=== PATIENT | female | born 1935 | race Caucasian/White ===

== ENCOUNTER 2018-06-13 12:14 | Inpatient (IN) | payer OTHER, MEDICARE ==
[~2018-06-13] VITALS: Ht 165.1 cm; Wt 61.2 kg
[~2018-06-13 12:14] MED LIST: ASPIR 8181 MG PO; AZITHROMYCIN250 MG PO; FISH OIL CONCEN1 SGL PO; GABAPENTIN300 MG PO; JANUMET 1000 MG1 TAB PO; LISINOPRIL40 MG PO; MAGNESIUM OXID400 MG PO; MULTIVITAMIN1 TAB PO; NORVASC 5MG TAB5 MG PO; PANTOPRAZOLE SO40 MG PO; PREDNISONE10 MG PO; QUETIAPINE FUM100 MG PO; QUETIAPINE FUMA25 MG PO; QUININE SULFAT324 MG PO; SIMVASTATIN20 MG PO; TRAZODONE100 MG PO; VITAB121000 PO; VITAMIN C250 M1 PO; VITAMIN C500 M1 PO
[2018-06-13 13:08] LABS: ABSOLUTE BASOPHIL COUNT 0 /CUMM (0.0-0.2); ABSOLUTE EOSINOPHIL COUNT 0.1 /CUMM (0.0-0.7); ABSOLUTE GRANULOCYTE CT 2.8 /CUMM (1.4-6.5); ABSOLUTE LYMPH COUNT 0.9 /CUMM (1.2-3.4); ABSOLUTE MONOCYTE COUNT 0.3 /CUMM (0.10-0.60); BASOPHIL % 0.4 % (0.0-2.0); EOSINOPHIL % 3.5 % (0-5); GRANULOCYTE % 67.4 % (42.2-75.2); HEMATOCRIT 32.6 % (37-47); MEAN CORPUSCULAR HGB 30.5 PG (27.0-31.0); MEAN CORPUSCULAR HGB CONC 33.9 G/DL (33.0-37.0); MEAN CORPUSCULAR VOLUME 89.9 FL (81.0-99.0); MEAN PLATELET VOLUME 6.8 FL (7.4-10.4); PLATELET COUNT 223 /CUMM (130-400); RBC DISTRIBUTION WIDTH 14.2 % (11.5-14.5); RED BLOOD CELL CT 3.62 /CUMM (4.20-5.40); WHITE BLOOD CELL COUNT 4.2 /CUMM (4.8-10.8)
--- NOTE | 2018-06-13 14:06 | RADIOLOGY REPORT ---
EXAMINATION: XR CHEST CLINICAL INFORMATION: Chest tightness and cough COMPARISON: 01/09/2016 TECHNIQUE: 2 views of the chest were obtained. FINDINGS: Focal opacity of the posterior lungs, also projects over the vertebral bodies appreciated on the lateral view only. This is new when compared with the prior chest radiograph. No pneumothorax or pleural effusion bilaterally. The lungs are hyperinflated with flattening of the diaphragms as previously seen. Heart size is normal. Atherosclerosis thoracic aorta. Degenerative changes of the spine. IMPRESSION: Focal opacity seen on the lateral view only also projecting over a lower thoracic vertebral body. Whether this is artifact from summation of shadows or a focal opacity is unable to be determined. If indicated based upon clinical assessment, chest CT can be performed. COPD.
[2018-06-13] MEDS ORDERED: JANUMET 50-1,01 EACH PO (16:47)
[2018-06-13] MEDS ORDERED: LISINOPRIL40 M1 PO (16:47)
[2018-06-13] MEDS ORDERED: QUETIAPINE FUMA25 M1 PO (16:49)
[2018-06-13] MEDS ORDERED: QUININE SULFAT324 M1 PO (16:49)
[2018-06-13] MEDS ORDERED: GABAPENTIN300 M2 PO (16:49)
[2018-06-13] MEDS ORDERED: MULTIVITAMINS1 EAC9 PO (16:50)
[2018-06-13] MEDS ORDERED: TRAZODONE HCL100 M1 PO (16:50)
[2018-06-13] MEDS ORDERED: QUETIAPINE FUM100 M1 PO (16:50)
[2018-06-13] MEDS ORDERED: VITAMIN B-121000 MC3 PO (16:51)
[2018-06-13] MEDS ORDERED: FISH OIL 1,0001 EAC1 PO (16:51)
[2018-06-13] MEDS ORDERED: ASPIRIN EC81 M1 PO (16:51)
[2018-06-13] MEDS ORDERED: VITAMIN C500 M8 PO (16:52)
[2018-06-13] MEDS ORDERED: VITAMIN D1000 UNIT PO (16:53)
[2018-06-13] MEDS ORDERED: IRON240 MG PO (16:53)
[2018-06-13] MEDS ORDERED: ZINC50 M2 PO (16:53)
[2018-06-13] MEDS ORDERED: MAGNESIUM400 M1 PO (16:54)
--- NOTE | 2018-06-13 17:36 | ED INFLUENZA/URI COMPLAINT ---
History of Present Illness General Chief Complaint: Dyspnea (COPD, CHF, Other) Stated Complaint: SOB; EAR PAIN; SORE THROAT Source: patient Exam Limitations: no limitations Vital Signs & Intake/Output Vital Signs & Intake/Output Vital Signs Date Time Temp Pulse Resp B/P B/P Pulse O2 O2 Flow FiO2 Mean Ox Delivery Rate 06/15 0907 100 148/66 06/15 0906 100 148/66 06/15 0630 98.6 78 18 148/60 99 06/15 0000 Room Air 06/14 2233 90 154/90 ED Intake and Output 06/15 0000 06/14 1200 Intake Total 480 220 Output Total 660 Balance -180 220 Intake, Oral 480 220 Number 0 Bowel Movements Output, Urine 660 Patient 133 lb Weight Weight Bed scale Measurement Method Allergies Coded Allergies: NO KNOWN ALLERGIES (10/24/14) Reconcile Medications Amlodipine Besylate 5 MG TABLET 1 TAB PO DAILY HTN .. Ascorbic Acid (Vitamin C) (Unknown Strength) TABLET (Unknown Dose) PO QW SUPPLEMENT (Reported) Aspirin (Ecotrin*) 81 MG TABLET.DR 1 TAB PO DAILY HEART/BLOOD (Reported) Cholecalciferol (Vitamin D3) (Vitamin D) 1,000 UNIT TABLET 1 TAB PO DAILY SUPPLEMENT (Reported) Cyanocobalamin (Vitamin B-12) (Unknown Strength) TABLET (Unknown Dose) PO DAILY SUPPLEMENT (Reported) Ferrous Gluconate (IRON) 240 MG (27 MG IRON) TABLET 1 TAB PO DAILY SUPPLEMENT (Reported) Gabapentin 300 MG CAPSULE 1 CAP PO QHS RLS (Reported) Lisinopril 40 MG TABLET 1 TAB PO DAILY BP (Reported) Magnesium Oxide (Magnesium) (Unknown Strength) CAPSULE (Unknown Dose) PO DAILY SUPPLEMENT (Reported) Multiple Vitamin (Multivitamins) 1 EACH TABLET 2 TAB PO QW SUPPLEMENT ( Reported) [place]-3 Fatty Acids/Fish Oil (Fish Oil 1,000 MG Softgel) (Unknown Strength) CAPSULE (Unknown Dose) PO DAILY SUPPLEMENT (Reported) Quetiapine Fumarate 25 MG TABLET 2 TAB PO QHS INSOMNIA (Reported) Quetiapine Fumarate 100 MG TABLET 1 TAB PO QHS INSOMNIA (Reported) Quinine Sulfate 324 MG CAPSULE 1 CAP PO DAILY UNKNOWN (Reported) Sitagliptin Phos/Metformin HCl (Janumet 50-1,000 MG Tablet) 50 MG-1,000 MG TABLET 1 TAB PO BID DM (Reported) Trazodone HCl 100 MG TABLET 1 TAB PO QHS INSOMNIA (Reported) ZINC 50 MG TABLET 1 TAB PO DAILY SUPPLEMENT (Reported) Triage Note: PT TO ED C/O FEELING SOB WHILE SITTING OUTSIDE WITH FRIENDS. PT CURRENTLY ON Z-PACK FOR BRONCHITIS. C/O SORE THROAT AND RIGHT EAR PAIN. AFEBRILE. NO SOB NOTED. Triage Nurses Notes Reviewed? yes HPI: Patient is a 82 year old female with history of recurrent bronchitis, HTN, and DM2 who presents with complaints of shortness of breath, sore throat, chest heaviness, headache, and right ear pain for 4 days. According to patient she has recurrent bronchitis which generally presents this way and took a z-pack she had in her house. She is currently on day 4 and reports no relief of symptoms. She denies any cough, fever, chills, dizziness, or palpitations. She denies any recent surgery, lower limb pain/swelling, or history of DVT or PE Past History Travel History Traveled to [place] past 21 day No Medical History Any Pertinent Medical History? 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 No Review of Systems Review of Systems Constitutional: Reports: no symptoms. EENTM: Reports: ear pain, throat pain. Respiratory: Reports: no symptoms. Cardiovascular: Reports: no symptoms. GI: Reports: no symptoms. Genitourinary: Reports: no symptoms. Musculoskeletal: Reports: no symptoms. Skin: Reports: no symptoms. Neurological/Psychological: Reports: headache. Hematologic/Endocrine: Reports: no symptoms. Immunologic/Allergic: Reports: no symptoms. All Other Systems: Reviewed and Negative Physical Exam Physical Exam General Appearance: well developed/nourished, no apparent distress, alert, awake , comfortable Head: atraumatic, normal appearance Eyes: Bilateral: normal appearance, PERRL, EOMI. Ears, Nose, Throat: moist mucous membrane, hearing grossly normal, Tympanic normal, mild pharyngeal erythema Neck: normal inspection, supple, full range of motion Respiratory: normal breath sounds, chest non-tender Cardiovascular: regular rate/rhythm, edema, murmur (1+ PERIPHERIAL EDEMA), 1+ PERIPHERIAL EDEMA Peripheral Pulses: 2+ radial (L), 2+ ulnar (L) Gastrointestinal: normal bowel sounds, soft, non-tender, no organomegaly Back: normal inspection Neurologic/Psych: awake, alert, oriented x 3 Lymphatic: no anterior cervical rosette Core Measures Sepsis Present: No Sepsis Focused Exam Completed? No Progress Differential Diagnosis: cardiac vs pulmonary shortness of breath etiology. Plan of Care: Orders Procedure Date/time Status Discharge Patient 06/15 UNK Active Laboratory Tests 06/15/18 0630: Anion Gap 10, Estimated GFR 39 L, BUN/Creatinine Ratio 11.5 06/14/18 1730: Ur Random Creatinine 26.3, Ur Random Sodium 86, Ur Random Potassium 17.7, Fraction Sodium Excret 3.2 H Initial ED EKG: HR 89, NH 228, QTC 439 Sinus Rhythm, normal rate, normal axis First Degree AV block with PVC's. Negative for ST deviation or T wave inversion. Appropriate R wave progression. NO stemi. First degree AV block noted on previous EKG. Repeat EKG: changed (Neg st segment deviation) Comments: HEART score of 4. 1900 Ms Ena starts having an episode of shortness of breath and chest heaviness. ECG and trop re-ordered. Departure Departure Disposition: STILL A PATIENT Condition: Stable Clinical Impression Primary Impression: Anginal equivalent Secondary Impressions: Chest tightness, Hypertensive urgency Referrals: Chan Horn MD (PCP/Family) Departure Forms: Customer Survey General Discharge Information Prescriptions: Current Visit Scripts Amlodipine Besylate 1 TAB PO DAILY #30 TAB ..
--- NOTE | 2018-06-13 20:26 | History & Physical ---
Randy Gonzalez 06/13/182025: General Information and HPI MD Statement: I have seen and personally examined ANA LAURA TIRADO and documented this H&P. The patient is a 82 year old F who presented with a patient stated chief complaint of [chest pressure, shortness of breath, ear pain]. Source of Information: patient Exam Limitations: no limitations History of Present Illness: The patient is an 82-year-old lady with a past medical history significant for recurrent bronchitis, hypertension, diabetes mellitus, peripheral neuropathy, restless leg syndrome, GERD, osteoarthritis, and insomnia who presented to ED with chief complaint of chest pressure, shortness of breath, ear pain, and sore throat. She states that she is pretty active and does all the household activity by herself including grocery shopping. She was feeling fine until 4 days ago when she is started having an earache and sore throat. She was prescribed a backup Z -Jose per Dr. Horn due to recurrent bronchitis episodes; she started using it, and now she is on day 4 but she believes it has not helped her. She mentions that she was feeling relatively fine until 11 AM when she suddenly started having headache and mild chest pressure. She was also feeling feverish. When she was admitted to ED she had severe hypotension with blood pressure of 190/74, for which IV hydralazine and clonidine was given. Her master sheet clerk is Dr. Mast, last echocardiogram was done 3 months ago which was normal based on the history from patient. She denies chills, nausea, vomiting, dizziness, cough, fever, dizziness, palpitation weakness in extremities, constipation, diarrhea, frequency, dysuria. Allergies: No known allergies to any medications or food Past medical history: Chronic-recurrent bronchitis, hypertension, diabetes mellitus, hyperlipidemia, restless leg syndrome, peripheral neuropathy, osteoarthritis, insomnia, GERD, hiatal hernia, colonic diverticulosis, Family history: Noncontributory Past surgical history: Noncontributory Social history: She used to smoke 1 pack of cigarettes per day for more than 10 years and she quit more than 30 years ago, back in the time, 30 years ago she also used to drink alcohol, she denies any recreational drug use. She is and lives alone, and is able to do all his personal stuff and take care of household activities. Allergies/Medications Allergies: Coded Allergies: NO KNOWN ALLERGIES (10/24/14) Home Med list Ascorbic Acid (Vitamin C) (Unknown Strength) TABLET (Unknown Dose) PO QW SUPPLEMENT (Reported) Aspirin (Ecotrin*) 81 MG TABLET.DR 1 TAB PO DAILY HEART/BLOOD (Reported) Cholecalciferol (Vitamin D3) (Vitamin D) 1,000 UNIT TABLET 1 TAB PO DAILY SUPPLEMENT (Reported) Cyanocobalamin (Vitamin B-12) (Unknown Strength) TABLET (Unknown Dose) PO DAILY SUPPLEMENT (Reported) Ferrous Gluconate (IRON) 240 MG (27 MG IRON) TABLET 1 TAB PO DAILY SUPPLEMENT (Reported) Gabapentin 300 MG CAPSULE 1 CAP PO QHS RLS (Reported) Lisinopril 40 MG TABLET 1 TAB PO DAILY BP (Reported) Magnesium Oxide (Magnesium) (Unknown Strength) CAPSULE (Unknown Dose) PO DAILY SUPPLEMENT (Reported) Multiple Vitamin (Multivitamins) 1 EACH TABLET 2 TAB PO QW SUPPLEMENT ( Reported) [place]-3 Fatty Acids/Fish Oil (Fish Oil 1,000 MG Softgel) (Unknown Strength) CAPSULE (Unknown Dose) PO DAILY SUPPLEMENT (Reported) Quetiapine Fumarate 25 MG TABLET 2 TAB PO QHS INSOMNIA (Reported) Quetiapine Fumarate 100 MG TABLET 1 TAB PO QHS INSOMNIA (Reported) Quinine Sulfate 324 MG CAPSULE 1 CAP PO DAILY UNKNOWN (Reported) Sitagliptin Phos/Metformin HCl (Janumet 50-1,000 MG Tablet) 50 MG-1,000 MG TABLET 1 TAB PO BID DM (Reported) Trazodone HCl 100 MG TABLET 1 TAB PO QHS INSOMNIA (Reported) ZINC 50 MG TABLET 1 TAB PO DAILY SUPPLEMENT (Reported) Compliance With Home Meds: GOOD Past History Travel History Traveled to [place] past 21 day No Medical History Neurological: peripheral neuropathy, restless leg syndrome EENT: NONE Cardiovascular: hypertension Respiratory: bronchitis (- chronic), COPD Gastrointestinal: GERD Hepatic: NONE Renal: NONE Musculoskeletal: osteoarthritis Psychiatric: insomnia Endocrine: diabetes Blood Disorders: NONE Cancer(s): NONE 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 Exam & Diagnostic Data Last 24 Hrs of Vital Signs/I&O Vital Signs Date Time Temp Pulse Resp B/P B/P Pulse O2 O2 Flow FiO2 Mean Ox Delivery Rate 06/13 2200 98.3 84 20 118/74 100 Room Air 06/13 2040 98.0 82 18 140/68 98 Room Air 06/13 2005 87 99 Room Air 06/13 1909 107 20 140/86 98 Room Air 06/13 1845 107 210/82 06/13 1845 210/82 06/13 1830 Room Air Room Air 06/13 1628 210/90 06/13 1620 97.9 98 20 217/88 99 Room Air 06/13 1234 97.8 94 20 190/74 98 Room Air Intake & Output 06/14 0800 06/14 0000 06/13 1600 Intake Total 110 Output Total Balance 110 Intake, Oral 110 Patient 140 lb Weight Weight Reported by Patient Measurement Method Physical Exam General Appearance Alert, Oriented X3, Cooperative, No Acute Distress Skin No Rashes Skin Temp/Moisture Exam: Warm/Dry Sepsis Skin Exam (color): Normal for Ethnicity HEENT Atraumatic, EOMI, Mucous Membr. moist/pink Neck Supple Cardiovascular Regular Rate, Normal S1, Normal S2 Lungs Clear to Auscultation, Normal Air Movement Abdomen Normal Bowel Sounds, Soft, No Tenderness Neurological Normal Speech, Strength at 5/5 X4 Ext, Normal Tone, Sensation Intact Extremities No Clubbing, No Cyanosis, No Edema, Normal Pulses, No Tenderness/ Swelling, nodules in diatal hand interphalangeal joints Vascular Normal Pulses, Pulses Symmetrical Sepsis Peripheral Pulse Location: Dorsalis Pedis Sepsis Peripheral Pulse Exam: Normal Sepsis Cap Refill Exam: <2 Sec Last 24 Hrs of Labs/Cooper: Laboratory Tests 06/13/18 1935: Troponin I 0.01 06/13/18 1721: Troponin I < 0.01 06/13/18 1238: Anion Gap 9, Estimated GFR 39 L, BUN/Creatinine Ratio 12.3, Glucose 79, Calcium 9.5, Total Bilirubin 0.3, AST 23, ALT 22, Alkaline Phosphatase 73, Troponin I < 0.01, Total Protein 6.2 L, Albumin 3.9, Globulin 2.3, Albumin/Globulin Ratio 1.7, CBC w Diff NO MAN DIFF REQ, RBC 3.62 L, MCV 89.9, MCH 30.5, MCHC 33.9, RDW 14.2, MPV 6.8 L, Gran % 67.4, Lymphocytes % 21.8, Monocytes % 6.9, Eosinophils % 3.5, Basophils % 0.4, Absolute Granulocytes 2.8, Absolute Lymphocytes 0.9 L, Absolute Monocytes 0.3, Absolute Eosinophils 0.1, Absolute Basophils 0 Microbiology 06/13 2300 URINE ROUT: Legionella Antigen - ORD Diagnostic Data EKG Results First-degree AV nando block, heart rate 94 Assessment/Plan Assessment: The patient is an 82-year-old female with past medical history significant for chronic recurrent bronchitis who has presented to ED with chief complaint of chest pressure, shortness of breath, ear pain. Hypertensive emergency: The patient has a history of hypertension, in ED she had a blood pressure up to 217/88, IV hydralazine and p.o. clonidine was given in ED. Blood pressure is in control, since the patient also had chest tightness and chest pressure, serial EKGs and troponins were checked to rule out ACS, ACS was ruled out. Plan: Lisinopril, regular checks of blood pressure, continues cardiac monitoring Pneumonia on chest x-ray: History of the patient does not look like that the patient has ACS, she has a history of chronic-recurrent bronchitis. Chest x-ray has shown pneumonia. The patient has assorted Z-Jose from 4 days ago. Plan: Continue to monitor patient, she is already on day 4 of azithromycin Iron deficiency anemia: The patient has a hemoglobin of 11.0 Plan: Ferrous gluconate CODE STATUS-DNR/DNI Diet-consistent carbohydrate diet DVT prophylaxis-ALPs/heparin As Ranked By This Provider Problem List: 1. Hypertensive urgency 2. Chest tightness 3. Osteoarthritis 4. Chronic bronchitis 5. Diabetes mellitus 6. GERD 7. Hyperlipidemia 8. Persistent insomnia 9. Restless leg syndrome Core Measures/Misc (06/11) Acute Coronary Syndrome ACS Diagnosis: No Congestive Heart Failure Congestive Heart Failure Diagnosis No Cerebrovascular Accident CVA/TIA Diagnosis: No VTE (View Protocol) VTE Risk Factors Age>40 No Mechanical VTE Prophylaxis d/t N/A MechProphylax Ordered No VTE Pharm Prophylaxis d/t NA PharmProphylax ordered Sepsis (View protocol) Sepsis Present: No If YES complete Sepsis Event Note If YES complete Sepsis Event Note Cecelia Acosta MD 06/13/182031: Core Measures/Misc (06/11) Sepsis (View protocol) If YES complete Sepsis Event Note If YES complete Sepsis Event Note Resident Review Statement Resident Statement: examined this patient, discussed with analytics intern, agreed with analytics intern, discussed with family Other Findings: Patient is an 82-year-old female presented with chief complaints of history of sore throat and earache since last 5 days and Z-Jose(D4), headache, chest pressure and feeling feverish since one day. Most of the history is taken from the patient. At her baseline she is pretty active and does all her household activity by herself including groceries. She was completely all right 4 days ago and then she started having, sore throat and earache. She was given Z-Jose today was D4. She was feeling better in the morning around 11:00. she suddenly started having headache and chest pressure which was milder in nature. She continued to feel worse and was worried about herself so she came here. She was also feeling feverish. She denies for any fever, chills, nausea, vomiting, dizziness, weakness in any part of the limb.She was found to be in severe hypertension in the ED and range of 190/74.She was given IV hydralazine and clonidine for high blood pressure. She is following Dr. Mast. KBI-qdcdzap-mrwuwekmi bronchitis, COPD, hypertension, hyperlipidemia, DM, restless leg syndrome, peripheral neuropathy, GERD, Hiatal hernia, Schatzki ring , Polyps -colonic Diverticulosis, Osteoarthritis,Insomnia, JESSICA. Personal history- lives alone.quit smoking around 30-40 years ago, does not drink alcohol. Family history-noncontributory Vital signs at the time of admission-temperature 97.8, pulse 94, respiratory 20, blood pressure 190/74, SPO2 98% on room air. blood workup-hemoglobin 11.0, hematocrit 32.6, platelet count 223, granulocyte 67.4, sodium 132, potassium 4.5, chloride 96, carbon DEXA 27, anion gap 9, BUN 16, creatinine 1.3, glucose 79, calcium 9.5, total bilirubin 0.3, AST 23, ALT 22 , alkaline phosphatase 73, troponin I less than 0.01, albumin 3.9, CXR - Focal opacity seen on the lateral view only also projecting over a lower thoracic vertebral body Problem list- Pneumonia on the chest x-ray Uncontrolled hypertension Chronic bronchitis URI -outpatient antibiotic treatment z jose D4 Type 2 diabetes Chronic hyponatremia(132) GWEN on CKD Assessment and plan- * We will admit the patient to telemetry floor * We will continue her antihypertensive medication * We will follow CBC and BEP * We will do CT scan of the chest for further evaluation of the pneumatic patch * Please place cardiology consult(Dr. Mast/Dr. Gamboa) * Serial troponins and EKGs * If patient will have temperature and we will start her on antibiotic * Will follow urine for strep * Fingerstick 3 times daily/at bedtime * NovoLog according to sliding scale * CODE STATUS-DNR/DNI * Diet-consistent carbohydrate diet * DVT prophylaxis-ALPs/heparin
[2018-06-13 22:00] VITALS: BP 118/74
[2018-06-14 06:36] VITALS: BP 140/80
--- NOTE | 2018-06-14 08:05 | PN- Housestaff ---
Subjective Follow-up For: Hypertensive urgency ruling out ACS Chronic bronchitis ruling out pneumonia. Tele-Events Since Last Visit: Patient remained in sinus rhythm with heart rate between 6995 Subjective: No overnight events. Patient remained afebrile, penicillin examined this morning. She denied chest pain, palpitation, nausea, vomiting, chill, fever, abdominal pain dysuria. Patient reported that she was on Z-Jose for 4 days for bronchitis and then she developed chest pressure that is why she came to ED. Patient is feeling much improved. She is eating drinking orally. Review of Systems Constitutional: Denies: chills, fever, weakness. EENTM: Reports: no symptoms. Cardiovascular: Denies: chest pain, palpitations, syncope. Respiratory: Denies: cough, short of breath, sputum production. Gastrointestinal: Denies: abdominal pain, constipation, diarrhea, nausea, vomiting. Genitourinary: Reports: no symptoms. Musculoskeletal: Reports: no symptoms. Neurological/Psychological: Reports: no symptoms. Objective Last 24 Hrs of Vital Signs/I&O Vital Signs Date Time Temp Pulse Resp B/P B/P Pulse O2 O2 Flow FiO2 Mean Ox Delivery Rate 06/14 0856 60 138/80 06/14 0636 97.9 72 20 140/80 99 Room Air 06/13 2200 98.3 84 20 118/74 100 Room Air 06/13 2040 98.0 82 18 140/68 98 Room Air 06/13 2005 87 99 Room Air 06/13 1909 107 20 140/86 98 Room Air 06/13 1845 107 210/82 06/13 1845 210/82 06/13 1830 Room Air Room Air 06/13 1628 210/90 06/13 1620 97.9 98 20 217/88 99 Room Air 06/13 1234 97.8 94 20 190/74 98 Room Air Intake & Output 06/14 1600 06/14 0800 06/14 0000 Intake Total 220 110 Output Total Balance 220 110 Intake, Oral 220 110 Physical Exam General Appearance: Alert, Oriented X3, Cooperative Skin Temp/Moisture Exam: Warm/Dry Sepsis Skin Exam (color): Normal for Ethnicity HEENT: Atraumatic, PERRLA, EOMI Neck: Supple Cardiovascular: Normal S1, Normal S2 Lungs: Clear to Auscultation Abdomen: Soft, No Tenderness Neurological: Normal Speech, Strength at 5/5 X4 Ext, Normal Tone Extremities: No Edema Assessment/Plan Assessment: 82 YO F with PMH of chronic-recurrent bronchitis, COPD, hypertension, hyperlipidemia, DM, restless leg syndrome, peripheral neuropathy, GERD, Hiatal hernia, Schatzki ring, Polyps -colonic Diverticulosis, Osteoarthritis and insomnia came to ED with chief complaint of sore throat, earache for 5 days and she is taking Z-Jose for 4 days. Patient also complained of chest pressure and had fever for 1 day. Seeing the patient on telemetry floor for following problems. Hypertensive urgency and ruling out ACS: -Initially admitted for hypertensive urgency as blood pressure was in 217/88 and this and received hydralazine IV push with p.o. clonidine once. Today her blood pressure is 140/80. -Patient reported chest pressure and with ruling out ACS. Her troponin EKG remained negative for any ischemic cardiac injury. -Continue aspirin 81 mg -Follow-up cardiology recommendations Hyponatremia: -Could be medication induced or less likely hypovolemic hyponatremia as patient having chronic hyponatremia. She is always in 130s. -Her sodium level is 132 -Follow-up urine lytes. History of chronic bronchitis: -Her imaging study ruled out any suspicion of pneumonia. Patient is afebrile and her WBC count is within normal limits. -Keeping her off antibiotics for now. -We will closely watch her for any signs of infection or fever -If patient spikes failure then we will do panculture and start her on antibiotics. History of hypertension hyperlipidemia: -Continue lisinopril -She is not on any anti-hyperlipidemic medications. History of chronic kidney disease: -CKD stage III, as her baseline GFR is in 30s and creatinine is 1.3 -Stable CKD. History of diabetes: -Accu-Cheks, this morning her fasting blood sugar level is 113 -Continue NovoLog according to sliding scale -We are holding her sitagliptin History of insomnia: -Continuing her trazodone -Continue her quetiapine History of peripheral neuropathy: -Continue gabapentin DVT prophylaxis: Mechanical and subcutaneous heparin CODE STATUS: DNR/intu Problem List: 1. Chest tightness Pain Ratin Pain Location: none Pain Goal: Remain pain free Pain Plan: pain pathway Tomorrow's Labs & Rationales: cbc/bep
--- NOTE | 2018-06-14 08:30 | CT SCAN REPORT ---
EXAMINATION: CT CHEST WITHOUT CONTRAST CLINICAL INFORMATION: History of chest tightness and cough. Shortness of breath. Patchy opacity on chest radiograph. Evaluate for pneumonia. COMPARISON: CXR from 06/13/2018. Chest CT from 10/25/2014 and 04/15/2016. TECHNIQUE: Multidetector volumetric CT imaging of the chest was done. Axial MIP volume rendering provided. Sagittal and coronal reformatted images were obtained. DLP: 222 mGy-cm FINDINGS: LUNGS AND PLEURA: Trachea and central airways are widely patent and normal in caliber. Mild reticular opacity at extreme lung apices from chronic scarring. Small area of chronic groundglass opacity in anterior right apex, unchanged compared to 10/25/2014 (image 89, series 4). Several old, small, stable noncalcified nodules in the right upper lobe, largest measuring up to 0.3 cm. Stable 0.4 cm nodular opacity of the minor fissure (image 216, series 4). 0.4 cm groundglass nodule in the right lower lobe remains unchanged compared to 10/25/2014 (image 332, series 4). Also, there is an old, stable 0.4 cm groundglass opacity of the superior segment of the left lower lobe (image 114, series 4). Stable 0.4 cm nodule of the left major fissure, consistent with a lymph node (image 235, series 4). No new lung nodules are seen. No acute consolidation or pleural effusion. MEDIASTINUM: The heart size is normal. Mild, scattered atherosclerotic calcification of coronary arteries. Moderate atherosclerosis of the thoracic aorta without aneurysm. No pericardial effusion. The esophagus has normal wall thickness. Thyroid gland is unremarkable. No mediastinal mass. LYMPHATICS: No lymphadenopathy. UPPER ABDOMEN: Atherosclerosis of abdominal aorta and branch vessels. Gallbladder is filled with rim calcified stones. Adrenal glands are normal. 0.4 cm calyceal stone within the upper pole left kidney. 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 Compared to 04/15/2016, interval worsening of disc disease at T7-T8, T9-T10 and T12-L1 as manifest by loss of disc space, endplate irregularities, endplate cystic changes, sclerosis and osteophytosis. It is uncertain to what extent, if any, these worsening changes are the sequela of prior discitis. There are no paraspinal fluid collections. Small hemangioma of the L1 vertebral body. IMPRESSION: 1. No evidence of acute pneumonia, pleural effusion or lymphadenopathy. 2. Pulmonary nodules exhibit long-term stability, consistent with benign nodules. 3. Atherosclerosis of coronary arteries and aorta without aortic aneurysm. 4. Cholelithiasis. 5. 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
--- NOTE | 2018-06-14 10:22 | Cons- Cardiology ---
General Information and HPI Consulting Request Date of Consult: 06/14/18 Requested By: Chan Horn MD History of Present Illness: 82-year-old lady with a past medical history significant for recurrent bronchitis, hypertension, diabetes mellitus, peripheral neuropathy, restless leg syndrome, GERD, osteoarthritis, and insomnia who presented to ED with chief complaint of chest pressure, shortness of breath, ear pain, and sore throat. She had been treated with antibiotics (Zpack) for bronchitis but did not improve so decided to come to the hospital. Pneumonia was diagnosed on CXR but could not be seen on chest CT. She has improved clincially with antibiotics. BP was also elevated on arrival, mostly systolic, ad 215 mmHg. She is very functional and independant despite her age. Last echocardiogram dates back to 2014, where myocardial systolic and diastolic function were essentially normal, and besides some mitral and aortic calcification and mild MR, there were no other significant valvular pathologies observed. Allergies/Medications Allergies: Coded Allergies: NO KNOWN ALLERGIES (10/24/14) Home Med List: Ascorbic Acid (Vitamin C) (Unknown Strength) TABLET (Unknown Dose) PO QW SUPPLEMENT (Reported) Aspirin (Ecotrin*) 81 MG TABLET.DR 1 TAB PO DAILY HEART/BLOOD (Reported) Cholecalciferol (Vitamin D3) (Vitamin D) 1,000 UNIT TABLET 1 TAB PO DAILY SUPPLEMENT (Reported) Cyanocobalamin (Vitamin B-12) (Unknown Strength) TABLET (Unknown Dose) PO DAILY SUPPLEMENT (Reported) Ferrous Gluconate (IRON) 240 MG (27 MG IRON) TABLET 1 TAB PO DAILY SUPPLEMENT (Reported) Gabapentin 300 MG CAPSULE 1 CAP PO QHS RLS (Reported) Lisinopril 40 MG TABLET 1 TAB PO DAILY BP (Reported) Magnesium Oxide (Magnesium) (Unknown Strength) CAPSULE (Unknown Dose) PO DAILY SUPPLEMENT (Reported) Multiple Vitamin (Multivitamins) 1 EACH TABLET 2 TAB PO QW SUPPLEMENT ( Reported) [place]-3 Fatty Acids/Fish Oil (Fish Oil 1,000 MG Softgel) (Unknown Strength) CAPSULE (Unknown Dose) PO DAILY SUPPLEMENT (Reported) Quetiapine Fumarate 25 MG TABLET 2 TAB PO QHS INSOMNIA (Reported) Quetiapine Fumarate 100 MG TABLET 1 TAB PO QHS INSOMNIA (Reported) Quinine Sulfate 324 MG CAPSULE 1 CAP PO DAILY UNKNOWN (Reported) Sitagliptin Phos/Metformin HCl (Janumet 50-1,000 MG Tablet) 50 MG-1,000 MG TABLET 1 TAB PO BID DM (Reported) Trazodone HCl 100 MG TABLET 1 TAB PO QHS INSOMNIA (Reported) ZINC 50 MG TABLET 1 TAB PO DAILY SUPPLEMENT (Reported) Current Medications: Current Medications Sig/Ferny Start time Last Medication Dose Route Stop Time Status Admin Ascorbic Acid 250 MG DAILY 06/14 0900 AC 06/14 PO 0856 Aspirin 325 MG ONCE ONE 06/13 1915 DC 06/13 PO 06/13 1916 192 Aspirin Buffered 81 MG DAILY 06/14 900 AC 06/14 PO 0856 Cholecalciferol 1,000 IU DAILY 06/14 09 AC 06/14 PO 0856 Clonidine 0 .STK-MED ONE 06/13 1815 DC PO Clonidine 0.1 MG ONCE ONE 06/13 1800 DC 06/13 PO 06/13 1801 184 Cyanocobalamin 1,000 MCG DAILY 06/14 09 AC 06/14 PO 0856 Ferrous Gluconate 324 MG DAILY 06/14 900 AC 06/14 PO 0857 Gabapentin 300 MG AT BEDTIME 06/13 2115 AC 06/13 PO 2354 Heparin Sodium 5,000 UNIT Q8 06/13 2200 AC 06/14 (Porcine) SC 0556 Hydralazine HCl 0 .STK-MED ONE 06/13 181 DC .ROUTE Hydralazine HCl 10 MG ONCE ONE 06/13 1800 DC 06/13 IV 06/13 1801 184 Influenza Virus 0 .STK-MED ONE 06/14 0553 DC Vaccine IM Influenza Virus 0.5 ML ONCE ONE 06/14 0130 DC 06/14 Vaccine IM 06/14 013 0556 Insulin Aspart 0 TIDAC 06/14 08 AC SC Lisinopril 40 MG DAILY 06/14 900 AC 06/14 PO 0856 Lorazepam 2 MG Q6 06/13 2359 CAN PO Lorazepam 0 Q1P PRN 06/13 2300 CAN IV Quetiapine Fumarate 100 MG AT BEDTIME 06/13 2100 AC 06/13 PO 2355 Quetiapine Fumarate 50 MG AT BEDTIME 06/13 2100 AC 06/13 PO 2355 Trazodone HCl 100 MG AT BEDTIME 06/13 2100 AC 06/13 PO 2355 Past History Travel History Traveled to [place] past 21 day No Medical History Blood Transfusion Hx: No Neurological: peripheral neuropathy, restless leg syndrome EENT: NONE Cardiovascular: hypertension Respiratory: bronchitis (- chronic), COPD Gastrointestinal: GERD Hepatic: NONE Renal: NONE Musculoskeletal: osteoarthritis Psychiatric: insomnia Endocrine: diabetes Blood Disorders: NONE Cancer(s): NONE 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 Home Services at Home: None Smoking Status: Former Smoker ETOH Use: denies use Illicit Drug Use: denies illicit drug use Exam & Diagnostic Data Vital Signs and I&O Vital Signs Date Time Temp Pulse Resp B/P B/P Pulse O2 O2 Flow FiO2 Mean Ox Delivery Rate 06/14 0856 60 138/80 06/14 0636 97.9 72 20 140/80 99 Room Air 06/13 2200 98.3 84 20 118/74 100 Room Air 06/13 2040 98.0 82 18 140/68 98 Room Air 06/13 2005 87 99 Room Air 06/13 1909 107 20 140/86 98 Room Air 06/13 1845 107 210/82 06/13 1845 210/82 06/13 1830 Room Air Room Air 06/13 1628 210/90 06/13 1620 97.9 98 20 217/88 99 Room Air 06/13 1234 97.8 94 20 190/74 98 Room Air Intake & Output 06/14 1600 06/14 0800 06/14 0000 06/13 1600 06/13 0800 06/13 0000 Intake Total 220 110 Output Total Balance 220 110 Intake, Oral 220 110 Patient 140 lb Weight Weight Reported by Patient Measurement Method Physical Exam: General Appearance: Alert, Oriented X3, Cooperative, comfortable HEENT: Atraumatic, PERRLA, EOMI Neck: Supple, trachea midline, no JVD Cardiovascular: Normal S1, Normal S2, 2/6 systolic ejection murmur LUSB Lungs: Clear to Auscultation, good air entry bilaterally Abdomen: Soft, Non Tenderness Neurological: Normal Speech, Strength at 5/5 X4 Ext, Normal Tone, Extremities: No Edema, good capillary refill Labs/Cooper Results: Laboratory Tests 06/13 06/13 06/13 1935 1721 1238 Chemistry Sodium (137 - 145 mmol/L) 132 L Potassium (3.5 - 5.1 mmol/L) 4.5 Chloride (98 - 107 mmol/L) 96 L Carbon Dioxide (22 - 30 mmol/L) 27 Anion Gap (5 - 16) 9 BUN (7 - 17 mg/dL) 16 Creatinine (0.5 - 1.0 mg/dL) 1.3 H Estimated GFR (>60 ml/min) 39 L BUN/Creatinine Ratio (7 - 25 %) 12.3 Glucose (65 - 99 mg/dL) 79 Calcium (8.4 - 10.2 mg/dL) 9.5 Total Bilirubin (0.2 - 1.3 mg/dL) 0.3 AST (14 - 36 U/L) 23 ALT (9 - 52 U/L) 22 Alkaline Phosphatase (<127 U/L) 73 Troponin I (< 0.11 ng/ml) 0.01 < 0.01 < 0.01 Total Protein (6.3 - 8.2 g/dL) 6.2 L Albumin (3.5 - 5.0 g/dL) 3.9 Globulin (1.9 - 4.2 gm/dL) 2.3 Albumin/Globulin Ratio (1.1 - 2.2 %) 1.7 Hematology CBC w Diff NO MAN DIFF REQ WBC (4.8 - 10.8 /CUMM) 4.2 L RBC (4.20 - 5.40 /CUMM) 3.62 L Hgb (12.0 - 16.0 G/DL) 11.0 L Hct (37 - 47 %) 32.6 L MCV (81.0 - 99.0 FL) 89.9 MCH (27.0 - 31.0 PG) 30.5 MCHC (33.0 - 37.0 G/DL) 33.9 RDW (11.5 - 14.5 %) 14.2 Plt Count (130 - 400 /CUMM) 223 MPV (7.4 - 10.4 FL) 6.8 L Gran % (42.2 - 75.2 %) 67.4 Lymphocytes % (20.5 - 51.1 %) 21.8 Monocytes % (1.7 - 9.3 %) 6.9 Eosinophils % (0 - 5 %) 3.5 Basophils % (0.0 - 2.0 %) 0.4 Absolute Granulocytes (1.4 - 6.5 /CUMM) 2.8 Absolute Lymphocytes (1.2 - 3.4 /CUMM) 0.9 L Absolute Monocytes (0.10 - 0.60 /CUMM) 0.3 Absolute Eosinophils (0.0 - 0.7 /CUMM) 0.1 Absolute Basophils (0.0 - 0.2 /CUMM) 0 Assessment/Plan Assessment/Plan hypertensive urgency in the context of upper respiratory tract infection. No clinical evidence of CHF, and 2014 echocardiogram does not suggest any significant myocardial or valvular dysfunction. BP has been well controlled X 24 hours with only lisinopril 40, without need for PRN clonidine or hydralazine. I would add amlodipine 5 mg PO daily beginning tomorrow to her regular medical regimen. Consult Acknowledgment - Thank you for your consult request.
--- NOTE | 2018-06-14 10:42 | PN- Att Addend ---
Attending Addendum Attending Brief Note 82-year-old active female, recently treated for an upper respiratory infection. Comes in complaining of chest pressure for a few hours duration, comes to the ER , has no acute EKG changes and no bump in the troponin so far. Patient will be on observation. Will get serial EKGs serial enzymes and have a cardiology consultation. 24 TOTALS 06/14 0000 06/13 0000 Intake Total 110 Output Total Balance 110 Intake, Oral 110 Patient 140 lb Weight Weight Reported by Patient Measurement Method Current Medications Sig/Ferny Start time Last Medication Dose Route Stop Time Status Admin Ascorbic Acid 250 MG DAILY 06/14 900 AC 06/14 PO 0856 Aspirin 325 MG ONCE ONE 06/13 1915 DC 06/13 PO 06/13 1916 192 Aspirin Buffered 81 MG DAILY 06/14 900 AC 06/14 PO 0856 Cholecalciferol 1,000 IU DAILY 06/14 900 AC 06/14 PO 0856 Clonidine 0 .STK-MED ONE 06/13 181 DC PO Clonidine 0.1 MG ONCE ONE 06/13 1800 DC 06/13 PO 06/13 1801 1845 Cyanocobalamin 1,000 MCG DAILY 06/14 900 AC 06/14 PO 0856 Ferrous Gluconate 324 MG DAILY 06/14 900 AC 06/14 PO 0857 Gabapentin 300 MG AT BEDTIME 06/13 2115 AC 06/13 PO 2354 Heparin Sodium 5,000 UNIT Q8 06/13 2200 AC 06/14 (Porcine) SC 0556 Hydralazine HCl 0 .STK-MED ONE 06/13 1815 DC .ROUTE Hydralazine HCl 10 MG ONCE ONE 06/13 1800 DC 06/13 IV 06/13 1801 1845 Influenza Virus 0 .STK-MED ONE 06/14 0553 DC Vaccine IM Influenza Virus 0.5 ML ONCE ONE 06/14 0130 DC 06/14 Vaccine IM 06/14 013 0556 Insulin Aspart 0 TIDAC 06/14 0800 AC SC Lisinopril 40 MG DAILY 06/14 09 AC 06/14 PO 0856 Lorazepam 2 MG Q6 06/13 2359 CAN PO Lorazepam 0 Q1P PRN 06/13 2300 CAN IV Quetiapine Fumarate 100 MG AT BEDTIME 06/13 2100 AC 06/13 PO 2355 Quetiapine Fumarate 50 MG AT BEDTIME 06/13 2100 AC 06/13 PO 2355 Trazodone HCl 100 MG AT BEDTIME 06/13 2100 AC 06/13 PO 2355 Laboratory Tests 06/13/18 1935: Troponin I 0.01 06/13/18 1721: Troponin I < 0.01 06/13/18 1238: Anion Gap 9, Estimated GFR 39 L, BUN/Creatinine Ratio 12.3, Glucose 79, Calcium 9.5, Total Bilirubin 0.3, AST 23, ALT 22, Alkaline Phosphatase 73, Troponin I < 0.01, Total Protein 6.2 L, Albumin 3.9, Globulin 2.3, Albumin/Globulin Ratio 1.7, CBC w Diff NO MAN DIFF REQ, RBC 3.62 L, MCV 89.9, MCH 30.5, MCHC 33.9, RDW 14.2, MPV 6.8 L, Gran % 67.4, Lymphocytes % 21.8, Monocytes % 6.9, Eosinophils % 3.5, Basophils % 0.4, Absolute Granulocytes 2.8, Absolute Lymphocytes 0.9 L, Absolute Monocytes 0.3, Absolute Eosinophils 0.1, Absolute Basophils 0 Vital Signs Date Time Temp Pulse Resp B/P B/P Pulse O2 O2 Flow FiO2 Mean Ox Delivery Rate 06/14 1030 Room Air 06/14 0856 60 138/80 06/14 0636 97.9 72 20 140/80 99 Room Air 06/13 2200 98.3 84 20 118/74 100 Room Air 06/13 2040 98.0 82 18 140/68 98 Room Air 06/13 2005 87 99 Room Air 06/13 1909 107 20 140/86 98 Room Air 06/13 1845 107 210/82 06/13 1845 210/82 06/13 1830 Room Air Room Air 06/13 1628 210/90 06/13 1620 97.9 98 20 217/88 99 Room Air 06/13 1234 97.8 94 20 190/74 98 Room Air
[2018-06-14 14:22] VITALS: BP 156/79
[2018-06-15] MEDS ORDERED: AMLODIPINE BESYL5 M1 PO ×3 (06:08→10:35)
--- NOTE | 2018-06-15 06:11 | Patient Discharge Instructions ---
Discharge Instructions General Discharge Information You were seen/treated for: Hypertensive urgency Watch for these problems: Chest pain, palpitation, nausea, vomiting, severe headache, lightheadedness and loss of consciousness. If you experience any of these symptoms please come to ED or call to your primary care physician. Special Instructions: Follow-up with your primary care physician in 1 week. 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 Diet Recommended Diet: Diabetic Activity Activity Self Limited: Yes Acute Coronary Syndrome Inclusion Criteria At DC or during hospital stay patient has or had the following: ACS DIAGNOSIS No Discharge Core Measures Meds if any: Prescribed or Continued at Discharge Meds if any: NOT Prescribed or Continued at Discharge Congestive Heart Failure Inclusion Criteria At DC or during hospital stay patient has or had the following: CHF DIAGNOSIS No Discharge Core Measures Meds if any: Prescribed or Continued at Discharge Meds if any: NOT Prescribed or Continued at Discharge Cerebrovascular accident Inclusion Criteria At DC or during hospital stay patient has or had the following: CVA/TIA Diagnosis No Discharge Core Measures Meds if any: Prescribed or Continued at Discharge Meds if any: NOT Prescribed or Continued at Discharge Venous thromboembolism Inclusion Criteria VTE Diagnosis No VTE Type NONE VTE Confirmed by (Test) NONE Discharge Core Measures - Per Current guidelines, there needs to be overlap - treatment for the first 5 days of Warfarin therapy. - If discharged on Warfarin prior to 5 days of - overlap therapy, the patient will need to be - assessed for post discharge needs including - *Post discharge parental anticoagulation - *Warfarin and/or parental anticoagulation education - *Follow up date to check INR post discharge At least 5 days overlap therapy as Inpatient No Meds if any: Prescribed or Continued at Discharge Note: Overlap Therapy is Warfarin and Anticoagulant Meds if any: NOT Prescribed or Continued at Discharge
[2018-06-15 06:30] VITALS: BP 148/60
--- NOTE | 2018-06-15 07:51 | PN- Housestaff ---
Subjective Follow-up For: Hypertensive urgency Tele-Events Since Last Visit: Patient remained in sinus rhythm with heart rate between 7688 Subjective: No overnight events. Patient remained afebrile [place] and examined this morning. Patient denied chest pain, short of breath, nausea, vomiting, chill, fever, abdominal pain dysuria. Patient is at her baseline and eating drinking fine. Possibly being discharged today. Review of Systems Constitutional: Denies: chills, fever. EENTM: Reports: no symptoms. Cardiovascular: Denies: chest pain, palpitations. Respiratory: Denies: cough, short of breath, sputum production. Gastrointestinal: Denies: abdominal pain, constipation, diarrhea, nausea, vomiting. Genitourinary: Reports: no symptoms. Musculoskeletal: Reports: no symptoms. Neurological/Psychological: Reports: no symptoms. Objective Last 24 Hrs of Vital Signs/I&O Vital Signs Date Time Temp Pulse Resp B/P B/P Pulse O2 O2 Flow FiO2 Mean Ox Delivery Rate 06/15 0630 98.6 78 18 148/60 99 06/15 0000 Room Air 06/14 2233 90 154/90 06/14 1422 97.9 99 16 156/79 99 Room Air 06/14 1030 Room Air 06/14 0856 60 138/80 06/14 0800 99 Room Air Intake & Output 06/15 0800 06/15 0000 06/14 1600 Intake Total 120 120 360 Output Total 600 60 Balance 120 -480 300 Intake, Oral 120 120 360 Number 0 Bowel Movements Output, Urine 600 60 Patient 135 lb 133 lb Weight Weight Bed scale Bed scale Measurement Method Physical Exam General Appearance: Alert, Oriented X3, Cooperative Skin Temp/Moisture Exam: Warm/Dry Sepsis Skin Exam (color): Normal for Ethnicity HEENT: Atraumatic, PERRLA, EOMI Neck: Supple Cardiovascular: Normal S1, Normal S2 Lungs: Clear to Auscultation Abdomen: Soft, No Tenderness Neurological: Normal Speech, Strength at 5/5 X4 Ext, Normal Tone Extremities: No Edema Assessment/Plan Assessment: 82 YO F with PMH of chronic-recurrent bronchitis, COPD, hypertension, hyperlipidemia, DM, restless leg syndrome, peripheral neuropathy, GERD, Hiatal hernia, Schatzki ring, Polyps -colonic Diverticulosis, Osteoarthritis and insomnia came to ED with chief complaint of sore throat, earache for 5 days and she is taking Z-Jose for 4 days. Patient also complained of chest pressure and had fever for 1 day. Seeing the patient on telemetry floor for following problems. Hypertensive urgency and ruling out ACS: -Initially admitted for hypertensive urgency as blood pressure was in 217/88 and this and received hydralazine IV push with p.o. clonidine once. Today her blood pressure is 140/80. -Patient's troponin and EKGs remain negative for any ischemic cardiac injury. -Continue aspirin 81 mg -Patient's blood pressure remained under control with an 24 hours. Amlodipine has been added to her antihypertensive medications. -Patient remained stable possibly discharge today. Chronic Hyponatremia: -Could be medication induced or less likely hypovolemic hyponatremia as patient having chronic hyponatremia. She is always in 130s. -Her sodium level is 132 yesterday. -Follow-up urine lytes. History of chronic bronchitis: -Her imaging study ruled out any suspicion of pneumonia. Patient is afebrile and her WBC count is within normal limits. -Keeping her off antibiotics for now. -We will closely watch her for any signs of infection or fever -If patient spikes failure then we will do panculture and start her on antibiotics. History of hypertension hyperlipidemia: -Continue lisinopril -Amlodipine has been added to her antihypertensive medications. 5 mg daily. -She is not on any anti-hyperlipidemic medications. History of chronic kidney disease: -CKD stage III, as her baseline GFR is in 30s and creatinine is 1.3 -Stable CKD. History of diabetes: -Accu-Cheks, this morning her fasting blood sugar level is 113 -Continue NovoLog according to sliding scale -We are holding her sitagliptin History of insomnia: -Continuing her trazodone -Continue her quetiapine History of peripheral neuropathy: -Continue gabapentin DVT prophylaxis: Mechanical and subcutaneous heparin CODE STATUS: DNR/intu Problem List: 1. Hypertensive urgency Pain Ratin Pain Location: none Pain Goal: Remain pain free Pain Plan: pain pathway Tomorrow's Labs & Rationales: none
[2018-06-15 09:07] VITALS: BP 148/66
--- NOTE | 2018-06-15 11:06 | PN- Att Addend ---
Attending Addendum Attending Brief Note Doing better no chest pain no SOB BP meds adjusted, ambulating with a walker. BP improved ,no changes on physical exam. Will discharge today follow at the office, see CMR. Intake & Output 06/15 0400 06/13 0400 Intake Total 120 120 580 110 Output Total 600 60 Balance 120 -480 520 110 Intake, Oral 120 120 580 110 Number 0 Bowel Movements Output, Urine 600 60 Patient 135 lb 133 lb 140 lb Weight Weight Bed scale Bed scale Reported by Patient Measurement Method Laboratory Tests 06/15/18 0630: Anion Gap 10, Estimated GFR 39 L, BUN/Creatinine Ratio 11.5 06/14/18 1730: Ur Random Creatinine 26.3, Ur Random Sodium 86, Ur Random Potassium 17.7, Fraction Sodium Excret 3.2 H 06/13/18 1935: Troponin I 0.01 06/13/18 1721: Troponin I < 0.01 06/13/18 1238: Anion Gap 9, Estimated GFR 39 L, BUN/Creatinine Ratio 12.3, Glucose 79, Calcium 9.5, Total Bilirubin 0.3, AST 23, ALT 22, Alkaline Phosphatase 73, Troponin I < 0.01, Total Protein 6.2 L, Albumin 3.9, Globulin 2.3, Albumin/Globulin Ratio 1.7, CBC w Diff NO MAN DIFF REQ, RBC 3.62 L, MCV 89.9, MCH 30.5, MCHC 33.9, RDW 14.2, MPV 6.8 L, Gran % 67.4, Lymphocytes % 21.8, Monocytes % 6.9, Eosinophils % 3.5, Basophils % 0.4, Absolute Granulocytes 2.8, Absolute Lymphocytes 0.9 L, Absolute Monocytes 0.3, Absolute Eosinophils 0.1, Absolute Basophils 0 Microbiology 06/13 2300 URINE ROUT: Legionella Antigen - CAN Cancelled: SPECIMEN NOT RECEIVED IN LABORATORY Vital Signs Date Time Temp Pulse Resp B/P B/P Pulse O2 O2 Flow FiO2 Mean Ox Delivery Rate 06/15 0907 100 148/66 06/15 0906 100 148/66 06/15 0630 98.6 78 18 148/60 99 06/15 0000 Room Air 06/14 2233 90 154/90 06/14 1422 97.9 99 16 156/79 99 Room Air
== END 2018-06-15 11:43 | DRG 305 ==
LOC: ERH 12:14 → ERHI 19:38 → 1NO 19:38 → ENRESERV 20:29 → CANRESERV 20:29 → ENRESERV 21:08 → ENTRNSPT 21:12 → EDTRNSPTSTS 21:24 → 1NO 21:40 → CMPTRNSPT 21:56 → ENPENDDIS 06-15 10:38 → 1NO 06-15 11:43 → ENTRNSPT 06-15 11:45 → EDTRNSPT 06-15 11:51 → EDTRNSPTSTS 06-15 11:51 → CMPTRNSPT 06-15 11:57
PROVIDERS: Physician Assistant Medical
DX: I16.0 Hypertensive urgency (principal); E87.1 Hypo-osmolality and hyponatremia; J42 Unspecified chronic bronchitis; G25.81 Restless legs syndrome; G47.00 Insomnia, unspecified; K21.9 Gastro-esophageal reflux disease without esophagitis; E11.42 Type 2 diabetes mellitus with diabetic polyneuropathy; Z79.84 Long term (current) use of oral hypoglycemic drugs; M19.90 Unspecified osteoarthritis, unspecified site; K44.9 Diaphragmatic hernia without obstruction or gangrene; I44.0 Atrioventricular block, first degree; E78.5 Hyperlipidemia, unspecified; K22.2 Esophageal obstruction; I12.9 Hypertensive chronic kidney disease with stage 1 through stage 4 chronic kidney disease, or unspecified chronic kidney disease; E11.22 Type 2 diabetes mellitus with diabetic chronic kidney disease; N18.3 Chronic kidney disease, stage 3 (moderate); Z87.891 Personal history of nicotine dependence; Z66 Do not resuscitate
CPT/HCPCS: 1NSP; 84133; 84300; 36592; 71046; 82436; 82570; 87449; 93005; 93010; J0360; J1644; Q2036